=== PATIENT | male | born 1985 | race Caucasian/White ===

== ENCOUNTER → 2016-12-10 | Outpatient (CLI) | payer OTHER ==
[2016-12-10 09:32] LABS: Basophils % (A) 0 %; CH 31.8; CHCM 33.1; Eosinophils # (A) 0.2 k/uL (0-0.7); Eosinophils % (A) 2 %; HCT 45.1 % (39.0-53.0); HDW 2.41; HGB 14.7 gm/dL (13.0-17.5); Luc # (Auto) 0.14; Luc % (Auto) 2; Lymphocytes # (A) 2.3 k/uL (1.0-4.8); Lymphocytes % (A) 30 %; MCH 31.4 pg (25.0-35.0); MCHC 32.6 g/dL (31.0-37.0); MCV 96.4 fL (80.0-100.0); Mean Platelet Volume 6.3; Monocytes # (A) 0.4 k/uL (0-1.0); Monocytes % (A) 5 %; Neutrophils # (A) 4.7 k/uL (1.3-7.7); Neutrophils % (A) 61 %; RBC 4.68 m/uL (4.30-5.90); RDW 13.5 % (11.5-15.5); WBC 7.7 k/uL (3.8-10.6); WBC (Perox) 8.02
[2016-12-10 09:45] LABS: ALT 29 U/L (21-72); AST 15 U/L (17-59); Alkaline Phosphatase 45 U/L (38-126); Bilirubin, Delta 0.2 mg/dL (0.0-0.2); Cholesterol 160 mg/dL (<200); HDL Cholesterol 55 mg/dL (40-60); Non-African American GFR(MDRD) >60 (>60 ml/min/1.73 sqM); Total Bilirubin 0.5 mg/dL (0.2-1.3); Total Protein 6.6 g/dL (6.3-8.2); Triglycerides 108 mg/dL (<150)
== END | disposition home or self-care (01) ==
LOC: LABWHC1 08:36
PROVIDERS: ATTEND Internal Medicine
DX: M08.20 Juvenile rheumatoid arthritis with systemic onset, unspecified site (principal); Z51.81 Encounter for therapeutic drug level monitoring
CPT/HCPCS: 36415; 80061; 80076; 82565; 85025; 86480

== ENCOUNTER → 2017-04-07 | Outpatient (CLI) | payer OTHER ==
[2017-04-07 11:15] LABS: Basophils % (A) 0 %; CH 32.3; CHCM 34.1; Eosinophils # (A) 0.2 k/uL (0-0.7); Eosinophils % (A) 3 %; HCT 48.1 % (39.0-53.0); HDW 2.45; HGB 15.6 gm/dL (13.0-17.5); Luc % (Auto) 1; Lymphocytes # (A) 2.2 k/uL (1.0-4.8); Lymphocytes % (A) 26 %; MCH 30.9 pg (25.0-35.0); MCHC 32.4 g/dL (31.0-37.0); MCV 95.3 fL (80.0-100.0); Mean Platelet Volume 7.1; Monocytes # (A) 0.4 k/uL (0-1.0); Monocytes % (A) 5 %; Neutrophils # (A) 5.6 k/uL (1.3-7.7); Neutrophils % (A) 66 %; RBC 5.05 m/uL (4.30-5.90); RDW 14.3 % (11.5-15.5); WBC 8.4 k/uL (3.8-10.6); WBC (Perox) 8.57
[2017-04-07 11:34] LABS: ALT 28 U/L (21-72); AST 16 U/L (17-59); Alkaline Phosphatase 49 U/L (38-126); Bilirubin, Delta 0.1 mg/dL (0.0-0.2); Non-African American GFR(MDRD) >60 (>60 ml/min/1.73 sqM); Total Bilirubin 0.5 mg/dL (0.2-1.3); Total Protein 6.9 g/dL (6.3-8.2)
== END | disposition home or self-care (01) ==
LOC: LABWHC1 10:26
PROVIDERS: ATTEND Internal Medicine Rheumatology
DX: M08.20 Juvenile rheumatoid arthritis with systemic onset, unspecified site (principal); Z51.81 Encounter for therapeutic drug level monitoring
CPT/HCPCS: 36415; 80076; 82565; 85025

== ENCOUNTER 2017-11-02 20:57 | Emergency (ER) | payer OTHER ==
[2017-11-02] MEDS ORDERED: SODIUM CHLORIDE 0.9% 1,000 ML IV STA (21:32)
[2017-11-02 21:48] VITALS: RESP 14
[2017-11-02 21:58] LABS: Basophils % (A) 0 %; Eosinophils # (A) 0.1 k/uL (0-0.7); Eosinophils % (A) 2 %; HGB 13.9 gm/dL (13.0-17.5); Lymphocytes # (A) 2.4 k/uL (1.0-4.8); Lymphocytes % (A) 31 %; MCH 31.1 pg (25.0-35.0); MCHC 34.8 g/dL (31.0-37.0); MCV 89.5 fL (80.0-100.0); Monocytes # (A) 0.4 k/uL (0-1.0); Monocytes % (A) 5 %; Neutrophils # (A) 4.6 k/uL (1.3-7.7); Neutrophils % (A) 61 %; Platelet Count 238 k/uL (150-450); RBC 4.47 m/uL (4.30-5.90); RDW 12.8 % (11.5-15.5); WBC 7.6 k/uL (3.8-10.6)
[2017-11-02 22:05] LABS: ALT 22 U/L (21-72); AST 19 U/L (17-59); Albumin 4.5 g/dL (3.5-5.0); Alkaline Phosphatase 39 U/L (38-126); Amylase 54 U/L (30-110); Anion Gap 13 mmol/L; Blood Urea Nitrogen 15 mg/dL (9-20); Calcium 9.9 mg/dL (8.4-10.2); Carbon Dioxide 25 mmol/L (22-30); Chloride 106 mmol/L (98-107); Glucose 109 mg/dL (74-99); Lipase 63 U/L (23-300); Potassium 3.8 mmol/L (3.5-5.1); Sodium 144 mmol/L (137-145); Total Bilirubin 0.3 mg/dL (0.2-1.3); Total Protein 6.5 g/dL (6.3-8.2)
--- NOTE | 2017-11-02 22:23 | XR ---
EXAMINATION TYPE: XR KUB DATE OF EXAM: 11/02/2017 COMPARISON: NONE HISTORY: Abdominal pain TECHNIQUE: 2 views FINDINGS: There is no sign of intestinal obstruction or pneumoperitoneum. Fecal pattern is normal. Th ere are no pathologic calcifications over the kidneys. IMPRESSION: Nonacute abdomen.
--- NOTE | 2017-11-02 22:23 | XR ---
EXAMINATION TYPE: XR chest 2V DATE OF EXAM: 11/02/2017 COMPARISON: 07/30/2012 HISTORY: Chest pain TECHNIQUE: Frontal and lateral views of the chest are obtained. FINDINGS: Heart and mediastinum are normal. There is slight blunting of left costophrenic angle. The re is no heart failure. There is minimal linear density in the right lower lobe. IMPRESSION: There is small left pleural effusion or pleural reaction. No heart failure. There is [place] aring of most of the pleural effusions compared to old exam.
[2017-11-02 22:33] LABS: Appearance,Urine Clear (Clear); Bilirubin,Urine Negative (Negative); Blood,Urine Negative (Negative); Color,Urine Yellow; Glucose,Urine (UA) Negative (Negative); Ketones,Urine Negative (Negative); Leukocyte Esterase,Urine Negative (Negative); Nitrite,Urine Negative (Negative); PH, Urine 5.5 (5.0-8.0); Protein,Urine Negative (Negative); Specific Gravity,Urine 1.021 (1.001-1.035)
[2017-11-02] MEDS ORDERED: RX INFO: IV CONTRAST WAS GIVEN 1 EACH MISC MISCELLANE PRN (22:45)
--- NOTE | 2017-11-02 22:58 | ED ---
General Adult HPI - General Chief complaint: Abdominal Pain Stated complaint: back & kidney pain/fluid on lungs Time Seen by Provider: 11/02/17 21:21 Source: patient, RN notes reviewed Mode of arrival: ambulatory Limitations: no limitations - History of Present Illness Initial comments: Patient is a 32-year-old male presenting to the emergency room today with a chief complaint of right-sided flank pain. 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 States he has a known history of an effusion of the left lung. Patient states status post have a CT done but he ran out of insurance did not follow-up. Patient states that today while working began having increased pain. He states he's use to some arthritis but this was increased in the right flank. Patient states that he felt somewhat confused. He was working outside and has been hot today. Patient denies any other complaints or symptoms currently. Patient denies any recent fever, chills, shortness of breath, chest pain, nausea or vomiting, numbness or tingling, dysuria or hematuria, constipation or diarrhea, headaches or visual changes, or any other complaints. - Related Data Home Medications Medication Instructions Recorded Confirmed Folic Acid 2 mg PO DAILY 05/04/17 11/02/17 predniSONE 5 mg PO DAILY 05/04/17 11/02/17 Methotrexate Sodium [Methotrexate] 15 mg PO WE 11/02/17 11/02/17 predniSONE 4 mg PO DAILY 11/02/17 11/02/17 Allergies Allergy/AdvReac Type Severity Reaction Status Date / Time No Known Allergies Allergy Verified 11/02/17 21:56 Review of Systems ROS Statement: Those systems with pertinent positive or pertinent negative responses have been documented in the HPI. ROS Other: All systems not noted in ROS Statement are negative. Past Medical History Past Medical History: Asthma Additional Past Medical History / Comment(s): stills disease History of Any Multi-Drug Resistant Organisms: None Reported Additional Past Surgical History / Comment(s): heart surgery- hole repaired. Past Psychological History: Anxiety, Bipolar, Depression Smoking Status: Former smoker Past Alcohol Use History: Rare Past Drug Use History: Marijuana General Exam - General Exam Comments Initial Comments: General: The patient is awake and alert, in no distress, and does not appear acutely ill. Eye: Pupils are equal, round and reactive to light, extra-ocular movements are intact. No nystagmus. There is normal conjunctiva bilaterally. No signs of icterus. Ears, nose, mouth and throat: There are moist mucous membranes and no oral lesions. Neck: The neck is supple, there is no tenderness or JVD. Cardiovascular: There is a regular rate and rhythm. No murmur, rub or gallop is appreciated. Respiratory: Lungs are clear to auscultation, respirations are non-labored, breath sounds are equal. No wheezes, stridor, rales, or rhonchi. Gastrointestinal: Soft, non-distended, non-tender abdomen without masses or organomegaly noted. There is no rebound or guarding present. No CVA tenderness. Bowel sounds are unremarkable. Musculoskeletal: Normal ROM, no tenderness. Strength 5/5. Sensation intact. Pulses equal bilaterally 2+. Neurological: A&O x 3. CN II-XII intact, There are no obvious motor or sensory deficits. Coordination appears grossly intact. Speech is normal. Skin: Skin is warm and dry and no rashes or lesions are noted. Psychiatric: Cooperative, appropriate mood & affect, normal judgment. Limitations: no limitations Course Vital Signs 11/02/17 11/02/17 11/02/17 21:04 21:43 21:47 Temperature 98.2 F 99 F Pulse Rate 63 80 Respiratory 18 18 14 Rate Blood Pressure 125/71 134/66 O2 Sat by Pulse 100 97 Oximetry 11/02/17 11/02/17 21:59 23:11 Temperature 99.4 F 98.1 F Pulse Rate 84 Respiratory 14 Rate Blood Pressure 127/62 O2 Sat by Pulse 96 Oximetry - Reevaluation(s) Reevaluation #1: 11/02/17 22:58 Patient examined and showing no signs of distress. He admits that his confusion is much better after IV fluids. Feels more like himself still experiencing some right flank pain. Patient stating he was supposed to have CAT scan of his lungs but unable to. Was ordered. CAT scan today. CT currently pending. Medical Decision Making - Medical Decision Making Patient reexamined at this time shows no signs of distress. Patient does admit that he is feeling better here in emergency room. CT chest and pelvis was reviewed shows cyst right kidney no other acute abnormalities appreciated. Small pleural effusion seen on his x-ray which shows a improving compared to comparison. Results were discussed with the patient. Advised close follow-up family doctor over the next 2 days. Advised to return here to the emergency room if any symptoms increase or worsen. Patient states understanding and is in agreement. - Lab Data Result diagrams: 11/02/17 21:30 11/02/17 21:30 Lab Results 11/02/17 11/02/17 11/02/17 Range/Units 21:30 21:30 22:20 WBC 7.6 (3.8-10.6) k/uL RBC 4.47 (4.30-5.90) m/uL Hgb 13.9 (13.0-17.5) gm/dL Hct 40.0 (39.0-53.0) % MCV 89.5 (80.0-100.0) fL MCH 31.1 (25.0-35.0) pg MCHC 34.8 (31.0-37.0) g/dL RDW 12.8 (11.5-15.5) % Plt Count 238 (150-450) k/uL Neutrophils % 61 % Lymphocytes % 31 % Monocytes % 5 % Eosinophils % 2 % Basophils % 0 % Neutrophils # 4.6 (1.3-7.7) k/uL Lymphocytes # 2.4 (1.0-4.8) k/uL Monocytes # 0.4 (0-1.0) k/uL Eosinophils # 0.1 (0-0.7) k/uL Basophils # 0.0 (0-0.2) k/uL Sodium 144 (137-145) mmol/L Potassium 3.8 (3.5-5.1) mmol/L Chloride 106 (98-107) mmol/L Carbon Dioxide 25 (22-30) mmol/L Anion Gap 13 mmol/L BUN 15 (9-20) mg/dL Creatinine 0.87 (0.66-1.25) mg/dL Est GFR (CKD-EPI)AfAm >90 (>60 ml/min/1.73 sqM) Est GFR (CKD-EPI)NonAf >90 (>60 ml/min/1.73 sqM) Glucose 109 H (74-99) mg/dL Calcium 9.9 (8.4-10.2) mg/dL Total Bilirubin 0.3 (0.2-1.3) mg/dL AST 19 (17-59) U/L ALT 22 (21-72) U/L Alkaline Phosphatase 39 (38-126) U/L Total Protein 6.5 (6.3-8.2) g/dL Albumin 4.5 (3.5-5.0) g/dL Amylase 54 (30-110) U/L Lipase 63 (23-300) U/L Urine Color Yellow Urine Appearance Clear (Clear) Urine pH 5.5 (5.0-8.0) Ur Specific [place] 1.021 (1.001-1.035) Urine Protein Negative (Negative) Urine Glucose (UA) Negative (Negative) Urine Ketones Negative (Negative) Urine Blood Negative (Negative) Urine Nitrite Negative (Negative) Urine Bilirubin Negative (Negative) Urine Urobilinogen 2.0 (<2.0) mg/dL Ur Leukocyte Esterase Negative (Negative) Disposition Clinical Impression: Renal cyst, Pleural effusion Disposition: HOME SELF-CARE Condition: Good Instructions: Pleural Effusion (ED) Additional Instructions: Please use medication as discussed. Please follow-up with family doctor in the next 2 days. Please return to emergency room if the symptoms increase or worsen or for any other concerns. Is patient prescribed a controlled substance at d/c from ED?: No Referrals: Montse Hernandez MD [Primary Care Provider] - 1-2 days Time of Disposition: 23:52
--- NOTE | 2017-11-02 23:24 | CT ---
EXAMINATION TYPE: CT ChestAbdPelvis w con DATE OF EXAM: 11/02/2017 COMPARISON: NONE HISTORY: left flank, chest and back pain CT DLP: 1238.00 mGycm Automated exposure control for dose reduction was used. CONTRAST: CT scan of the chest, abdomen and pelvis is performed without Oral Contrast and with IV Contrast, pat ient injected with 100 mL of Isovue 300. FINDINGS: The lungs are clear of infiltrate. There is no evidence of a pulmonary mass. Heart size is normal. Th ere is no pericardial effusion. There is no mediastinal adenopathy. There are no hilar masses. Liver spleen pancreas appear normal. Bile ducts are not dilated. Gallbladder is contracted. There is no adrenal mass. There is a 2.5 cm cyst on the lateral right kidney. Kidneys show satisfacto ry contrast opacification. There is no hydronephrosis. Ureters are not dilated. There is no retroperi toneal adenopathy. There is no ascites. Bladder distends smoothly. There is no sign of a pelvic mass. I see no intestinal wall thickening. There are no dilated loops. Appendix appears normal. Thoracic a nd lumbar vertebra show normal spacing and alignment. There is no evidence of compression fracture. I see no bony destructive process. IMPRESSION: Negative CT scan of the chest abdomen and pelvis. Right renal cortical cyst noted. Contra cted gallbladder. I do not see a cause for the patient's symptoms.
[2017-11-03 00:03] VITALS: BP 118/68; PULSE 66; TEMP 98.3
== END 2017-11-03 00:04 | disposition home or self-care (01) ==
LOC: EC 20:57
DX: J90 Pleural effusion, not elsewhere classified (principal); N28.1 Cyst of kidney, acquired; M08.20 Juvenile rheumatoid arthritis with systemic onset, unspecified site; J45.909 Unspecified asthma, uncomplicated; Z87.891 Personal history of nicotine dependence; Z79.52 Long term (current) use of systemic steroids; Z79.899 Other long term (current) drug therapy
CPT/HCPCS: 36415; 80053; 82150; 83690; 85025; 81003; 71046; 74018; 71260; 74177; 99284; 96360; 96361; Q9967

== ENCOUNTER 2017-11-10 09:14 | Emergency (ER) | payer OTHER ==
[2017-11-10 09:31] VITALS: RESP 18
[2017-11-10 10:45] LABS: Amphetamine Screen,Urine Not Detected (NotDetected); Barbiturate Screen,Urine Not Detected (NotDetected); Benzodiazepines Screen,Urine Not Detected (NotDetected); Cocaine Screen,Urine Not Detected (NotDetected); Methadone Screen, Urine Not Detected (NotDetected); Opiate Screen,Urine Not Detected (NotDetected); Oxycodone Screen, Urine Not Detected (NotDetected); Phencyclidine Screen,Urine Not Detected (NotDetected); Tricyclic Antidepressant,Urine Not Detected (NotDetected); Urn Cannabinoid Scrn Detected (NotDetected)
--- NOTE | 2017-11-10 12:25 | ED ---
General Adult HPI - General Chief complaint: Psychiatric Symptoms Stated complaint: Trouble Thinking/Confused Time Seen by Provider: 11/10/17 09:50 Source: patient, RN notes reviewed Mode of arrival: ambulatory Limitations: no limitations - History of Present Illness Initial comments: Patient's 32-year-old male significant past medical history for stills disease, presenting to the emergency room today with a chief complaint of having a difficult time making decisions and concentrating. Patient states that he's noticed this problem over the last weeks. Patient states he has chronic back pain which she was seen here in the emergency room approximately a week ago. Patient admits that he is on steroids and methotrexate for his history of still' s disease. He states he's never seen a counselor therapist. He does admit that he was having some thoughts of hurting himself recently but no falls suicide today. Denies any homicidal thoughts or plans. Patient denies any other complaints. - Related Data Home Medications Medication Instructions Recorded Confirmed Folic Acid 2 mg PO DAILY 05/04/17 11/10/17 predniSONE 5 mg PO DAILY 05/04/17 11/10/17 Methotrexate Sodium [Methotrexate] 15 mg PO WE 11/02/17 11/10/17 predniSONE 2 mg PO DAILY 11/02/17 11/10/17 Allergies Allergy/AdvReac Type Severity Reaction Status Date / Time No Known Allergies Allergy Verified 11/10/17 09:49 Review of Systems ROS Statement: Those systems with pertinent positive or pertinent negative responses have been documented in the HPI. ROS Other: All systems not noted in ROS Statement are negative. Past Medical History Past Medical History: Asthma Additional Past Medical History / Comment(s): stills disease History of Any Multi-Drug Resistant Organisms: None Reported Additional Past Surgical History / Comment(s): heart surgery- hole repaired. Past Psychological History: Anxiety, Bipolar, Depression Smoking Status: Former smoker Past Alcohol Use History: Rare Past Drug Use History: Marijuana General Exam - General Exam Comments Initial Comments: General: The patient is awake and alert, in no distress, and does not appear acutely ill. Eye: Pupils are equal, round and reactive to light, extra-ocular movements are intact. No nystagmus. There is normal conjunctiva bilaterally. No signs of icterus. Ears, nose, mouth and throat: There are moist mucous membranes and no oral lesions. Neck: The neck is supple, there is no tenderness or JVD. Cardiovascular: There is a regular rate and rhythm. No murmur, rub or gallop is appreciated. Respiratory: Lungs are clear to auscultation, respirations are non-labored, breath sounds are equal. No wheezes, stridor, rales, or rhonchi. Gastrointestinal: Soft, non-distended, non-tender abdomen without masses or organomegaly noted. There is no rebound or guarding present. No CVA tenderness. Musculoskeletal: Normal ROM, no tenderness. Strength 5/5. Sensation intact. Pulses equal bilaterally 2+. Neurological: A&O x 3. CN II-XII intact, There are no obvious motor or sensory deficits. Coordination appears grossly intact. Speech is normal. Skin: Skin is warm and dry and no rashes or lesions are noted. Limitations: no limitations Course Vital Signs 11/10/17 09:29 Temperature 97.9 F Pulse Rate 85 Respiratory 18 Rate Blood Pressure 133/83 O2 Sat by Pulse 98 Oximetry Medical Decision Making - Medical Decision Making Patient reexamined here in the emergency room show no signs of distress is been seen by mental health. Patient's at this time has been cleared for follow-up outpatient. Patient's recent visit was also reviewed with recent lab work. Patient is advised follow-up with family physician over the next 2 days. Advised return here to emergency room symptoms increase or worsen. - Lab Data Lab Results 11/10/17 Range/Units 09:40 Urine Opiates Screen Not Detected (NotDetected) Ur Oxycodone Screen Not Detected (NotDetected) Urine Methadone Screen Not Detected (NotDetected) Ur Propoxyphene Screen Not Detected (NotDetected) Ur Barbiturates Screen Not Detected (NotDetected) U Tricyclic Antidepress Not Detected (NotDetected) Ur Phencyclidine Scrn Not Detected (NotDetected) Ur Amphetamines Screen Not Detected (NotDetected) U Methamphetamines Scrn Not Detected (NotDetected) U Benzodiazepines Scrn Not Detected (NotDetected) Urine Cocaine Screen Not Detected (NotDetected) U Marijuana (THC) Screen Detected H (NotDetected) Disposition Clinical Impression: Still's disease, Depression Disposition: HOME SELF-CARE Condition: Good Instructions: Bone Scintigraphy (ED), Depression (ED) Additional Instructions: Please use medication as discussed. Please follow-up with family doctor in the next 2 days of symptoms have not improved. Please return to emergency room if the symptoms increase or worsen or for any other concerns. Is patient prescribed a controlled substance at d/c from ED?: No Referrals: Montse Hernandez MD [Primary Care Provider] - 1-2 days Time of Disposition: 12:57
[2017-11-10 13:14] VITALS: BP 123/56; PULSE 68; TEMP 98.3
== END 2017-11-10 13:10 | disposition home or self-care (01) ==
LOC: EC 09:14
DX: M08.20 Juvenile rheumatoid arthritis with systemic onset, unspecified site (principal); F32.9 Major depressive disorder, single episode, unspecified; J45.909 Unspecified asthma, uncomplicated; Z79.52 Long term (current) use of systemic steroids; Z79.899 Other long term (current) drug therapy; Z87.891 Personal history of nicotine dependence
CPT/HCPCS: 80306; 99284

== ENCOUNTER 2018-01-25 08:50 | Inpatient (IN) | payer MEDICAID, OTHER ==
--- NOTE | 2018-01-25 09:12 | ED ---
Psych HPI - General Chief Complaint: Psychiatric Symptoms Stated Complaint: suicidal Time Seen by Provider: 01/25/18 08:57 Source: patient, RN notes reviewed Mode of arrival: ambulatory Limitations: no limitations - History of Present Illness Initial Comments: 32-year-old male presents emergency Department chief complaint of depression, suicidal ideation. Patient states he has ongoing depression and states that he feels suicidal and states that he cannot trust himself. Patient states that he did use marijuana recently and states he drank alcohol over the weekend. Patient states that he was admitted at a different hospital a few months back. He states his place and Seroquel but discontinued it because it made him too fatigued. Patient denies any physical complaints. Patient denies any homicidal ideation - Related Data Home Medications Medication Instructions Recorded Confirmed Folic Acid 2 mg PO DAILY 05/04/17 01/25/18 predniSONE 5 mg PO DAILY 05/04/17 01/25/18 Methotrexate Sodium [Methotrexate] 15 mg PO WE 11/02/17 01/25/18 predniSONE 3 mg PO DAILY 11/02/17 01/25/18 Allergies Allergy/AdvReac Type Severity Reaction Status Date / Time No Known Allergies Allergy Verified 01/25/18 08:55 Review of Systems ROS Statement: Those systems with pertinent positive or pertinent negative responses have been documented in the HPI. ROS Other: All systems not noted in ROS Statement are negative. Past Medical History Past Medical History: Asthma Additional Past Medical History / Comment(s): stills disease History of Any Multi-Drug Resistant Organisms: None Reported Additional Past Surgical History / Comment(s): heart surgery- hole repaired. Past Psychological History: Anxiety, Bipolar, Depression Smoking Status: Former smoker Past Alcohol Use History: Rare Past Drug Use History: Marijuana General Exam Limitations: no limitations General appearance: alert, in no apparent distress Head exam: Present: atraumatic, normocephalic, normal inspection Eye exam: Present: normal appearance, PERRL, EOMI. Absent: scleral icterus, conjunctival injection, periorbital swelling ENT exam: Present: normal exam, normal oropharynx, mucous membranes moist Neck exam: Present: normal inspection, full ROM. Absent: tenderness, meningismus, lymphadenopathy Respiratory exam: Present: normal lung sounds bilaterally. Absent: respiratory distress, wheezes, rales, rhonchi, stridor Cardiovascular Exam: Present: regular rate, normal rhythm, normal heart sounds. Absent: systolic murmur, diastolic murmur, rubs, gallop, clicks GI/Abdominal exam: Present: soft, normal bowel sounds. Absent: distended, tenderness, guarding, rebound, rigid Neurological exam: Present: alert, oriented X3, CN II-XII intact Psychiatric exam: Present: depressed, flat affect Skin exam: Present: warm, dry, intact, normal color. Absent: rash Course Vital Signs 01/25/18 08:54 Temperature 98.5 F Pulse Rate 65 Respiratory 18 Rate Blood Pressure 132/83 O2 Sat by Pulse 96 Oximetry Medical Decision Making - Medical Decision Making 32-year-old male presented for psychiatric evaluation. Patient is depressed suicidal. Patient was medically cleared by me. Patient will be admitted here for psychiatric services. - Lab Data Lab Results 01/25/18 01/25/18 Range/Units 09:32 09:32 Urine Color Light Yellow Urine Appearance Clear (Clear) Urine pH 5.5 (5.0-8.0) Ur Specific [place] 1.008 (1.001-1.035) Urine Protein Negative (Negative) Urine Glucose (UA) Negative (Negative) Urine Ketones Negative (Negative) Urine Blood Negative (Negative) Urine Nitrite Negative (Negative) Urine Bilirubin Negative (Negative) Urine Urobilinogen <2.0 (<2.0) mg/dL Ur Leukocyte Esterase Negative (Negative) Urine Opiates Screen Not Detected (NotDetected) Ur Oxycodone Screen Not Detected (NotDetected) Urine Methadone Screen Not Detected (NotDetected) Ur Propoxyphene Screen Not Detected (NotDetected) Ur Barbiturates Screen Not Detected (NotDetected) U Tricyclic Antidepress Not Detected (NotDetected) Ur Phencyclidine Scrn Not Detected (NotDetected) Ur Amphetamines Screen Not Detected (NotDetected) U Methamphetamines Scrn Not Detected (NotDetected) U Benzodiazepines Scrn Not Detected (NotDetected) Urine Cocaine Screen Not Detected (NotDetected) U Marijuana (THC) Screen Detected H (NotDetected) Disposition Clinical Impression: Depression, Suicidal ideation Disposition: ADMITTED IP TO THIS [facility] Condition: Stable Referrals: Montse Hernandez MD [Primary Care Provider] - 1-2 days
[2018-01-25 10:21] LABS: Amphetamine Screen,Urine Not Detected (NotDetected); Barbiturate Screen,Urine Not Detected (NotDetected); Benzodiazepines Screen,Urine Not Detected (NotDetected); Cocaine Screen,Urine Not Detected (NotDetected); Methadone Screen, Urine Not Detected (NotDetected); Opiate Screen,Urine Not Detected (NotDetected); Oxycodone Screen, Urine Not Detected (NotDetected); Phencyclidine Screen,Urine Not Detected (NotDetected); Tricyclic Antidepressant,Urine Not Detected (NotDetected); Urn Cannabinoid Scrn Detected (NotDetected)
[2018-01-25 11:25] LABS: Appearance,Urine Clear (Clear); Bilirubin,Urine Negative (Negative); Blood,Urine Negative (Negative); Color,Urine Light Yellow; Glucose,Urine (UA) Negative (Negative); Ketones,Urine Negative (Negative); Leukocyte Esterase,Urine Negative (Negative); Nitrite,Urine Negative (Negative); PH, Urine 5.5 (5.0-8.0); Protein,Urine Negative (Negative); Specific Gravity,Urine 1.008 (1.001-1.035); Urobilinogen,Urine <2.0 mg/dL (<2.0)
[2018-01-25 11:47] LABS: Basophils % (A) 0 %; Eosinophils # (A) 0.1 k/uL (0-0.7); Eosinophils % (A) 1 %; HCT 45.9 % (39.0-53.0); HGB 15.7 gm/dL (13.0-17.5); Lymphocytes # (A) 1.1 k/uL (1.0-4.8); Lymphocytes % (A) 14 %; MCH 31.8 pg (25.0-35.0); MCHC 34.2 g/dL (31.0-37.0); MCV 92.9 fL (80.0-100.0); Mean Platelet Volume 6.4; Monocytes # (A) 0.3 k/uL (0-1.0); Monocytes % (A) 4 %; Neutrophils # (A) 6.2 k/uL (1.3-7.7); Neutrophils % (A) 79 %; Platelet Count 243 k/uL (150-450); RBC 4.94 m/uL (4.30-5.90); RDW 12.8 % (11.5-15.5); WBC 7.7 k/uL (3.8-10.6)
[2018-01-25 12:00] LABS: ALT 29 U/L (21-72); AST 19 U/L (17-59); Albumin 4.5 g/dL (3.5-5.0); Alkaline Phosphatase 38 U/L (38-126); Anion Gap 7 mmol/L; Blood Urea Nitrogen 17 mg/dL (9-20); Calcium 9.7 mg/dL (8.4-10.2); Carbon Dioxide 24 mmol/L (22-30); Chloride 109 mmol/L (98-107); Glucose 102 mg/dL (74-99); Potassium 4.7 mmol/L (3.5-5.1); Sodium 140 mmol/L (137-145); Total Bilirubin 0.3 mg/dL (0.2-1.3); Total Protein 6.7 g/dL (6.3-8.2)
[2018-01-25] MEDS ORDERED: ACETAMINOPHEN TAB 325 MG TAB PO PRN (15:45)
[2018-01-25] MEDS ORDERED: MAGNESIUM HYDROXIDE 2,400 MG/10 ML CUP PO PRN (15:45)
[2018-01-25] MEDS ORDERED: MAG HYDROX/AL HYDROX/SIMETH 30 ML CUP PO PRN (15:45)
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
--- NOTE | 2018-01-25 18:47 | CONS ---
CONSULTATION DATE OF SERVICE: 01/25/2018. REASON FOR CONSULTATION: Advice regarding rheumatoid arthritis and the medications requested by Psychiatry. HISTORY OF PRESENT ILLNESS: This 32-year-old gentleman with past history of asthma, Still disease, anxiety, bipolar depression, rheumatoid arthritis, history of THC, being followed by Dr. Montse Hernandez in the outpatient setting was admitted for psychiatric evaluation. There is no history of any fever, rigors. No history of headache, loss of consciousness or seizures at this time. PAST MEDICAL HISTORY: History of Still disease, asthma, anxiety, bipolar, depression, history of nicotine dependence. MEDICATIONS: 1. Prednisone 3 mg and 5 mg daily. 2. Methotrexate 50 mg Wednesday. 3. Folic acid 2 mg p.o. daily. ALLERGIES: None. FAMILY HISTORY: No history of heart disease or strokes in the family. SOCIAL HISTORY: History of smoking and THC. REVIEW OF SYSTEMS: ENT: No diminished hearing, diminished vision. CARDIOVASCULAR: No angina, palpitations. RESPIRATORY: No cough or hemoptysis. GI: No nausea or vomiting. : No dysuria. NERVOUS: No numbness or weakness. ALLERGY/IMMUNOLOGY: No asthma or hay fever. MUSCULOSKELETAL: As mentioned earlier. HEMATOLOGY/ONCOLOGY: No history of anemia. RHEUMATOLOGY: As mentioned earlier. PSYCHIATRY: As mentioned earlier. PHYSICAL EXAMINATION: Alert, oriented x3. The pulse is 74, blood pressure 130/60,[id number], temperature 97.6, pulse ox 94% on room air. HEENT: Conjunctivae normal. Oral mucosa moist. NECK: No jugular venous distention. No carotid bruits. No lymph node enlargement. CARDIOVASCULAR: S1, S2 muffled. RESPIRATORY: Breath sounds diminished in the bases. No rhonchi. No crackles. ABDOMEN: Soft, nontender. No mass palpable. LEGS: No edema. No swelling. NERVOUS SYSTEM: Higher functions as mentioned earlier. Moves all 4 limbs. No focal motor or sensory deficits. LYMPHATIC: No lymphadenopathy in neck or axillae. SKIN: No ulcer, rash or bleeding. LABS: CBC within normal limits. Sodium 140, potassium 4.7. THC positive. ASSESSMENT: 1. Depression and suicidal ideations. 2. History of Still disease and rheumatoid arthritis. 3. History of asthma. 4. Anxiety and bipolar depression. 5. History of nicotine dependence. 6. History of THC. RECOMMENDATIONS AND DISCUSSION: In this 32-year-old gentleman who presented with multiple medical issues, at this time I recommend to continue the current medical management and symptomatic treatment. Will resume the home medications. Otherwise, I would recommend close followup. The basic labs are normal. I recommend close follow up with Dr. Montse Hernandez in the outpatient setting. Will follow the patient closely. Thank you, Dr. Delgado, for the asking me to participate in the care of this patient. MMODL / IJN: [id number] /
[2018-01-25] MEDS: ARIPiprazole 5 MG TAB PO SCH (21:05)
[2018-01-26] MEDS ORDERED: METHOTREXATE SODIUM 2.5 MG TAB PO SCH (09:00)
[2018-01-26] MEDS ORDERED: predniSONE 5 MG TAB PO SCH (09:00)
[2018-01-26] MEDS: predniSONE 5 MG TAB PO SCH (09:00)
[2018-01-26] MEDS ORDERED: predniSONE 1 MG TAB PO SCH (09:00)
--- NOTE | 2018-01-26 10:16 | P.PN ---
Progress Note - Text Progress Note Date: 01/26/18 Interval History: Patient is a 32-year-old male who was seen today and he reports that he didn't sleep well last night due to his roommates snoring. Patient states that the auditory hallucinations have decreased but he continues to feel that people are talking about him and is suspicious. He reports continuing to feel depressed but states no further suicidal thoughts. Patient states that he continues to have crying spells. Patient states that he feels he can support himself on the full-time job at the [employer] and is able to make his house payments. He states no side effects from the Abilify. Mental Status: Appearance/Attitude: Patient is dressed in a hospital gown, makes good eye contact and is cooperative. Behavior: Patient does not exhibit any psychomotor agitation or retardation. Speech/Language: Patient's speech is spontaneous of normal volume and rhythm and he is coherent. Thought Process: Patient is goal-directed there is no evidence of loose associations or flight of ideas. Thought Content: Patient states that he is not hearing voices at this time denies visual hallucinations but is still suspicious and paranoid that people are talking about him. He reports no ideas of reference at this time. Patient states that he continues to feel stressed and overwhelmed. Patient states his sleep was poor last night and his appetite is fair. He reported no side effects from the Abilify. Suicidal/Homicidal Ideation: Patient denies any current suicidal or homicidal ideation Sensorium/Cognition: Patient is alert and oriented to person, place, and time and his recent and remote memory are grossly intact Mood/Affect: Patient's mood is depressed and his affect is blunted Insight/Judgment: Patient's insight and judgment are intact Assessment: Patient reports that he is no longer hearing voices, continues to remain paranoid and suspicious that people are talking about him did not verbalize any ideas of reference. His mood remains depressed but he states he is no longer feeling suicidal. Patient and I again reviewed his medications for his arthritis the patient had decreased his methotrexate to 7-1/2 mg to save money as he thought he was losing his insurance at the end of the month his dose is supposed to be 15 mg on a weekly basis. Patient had been on a slow taper of prednisone and is supposed to be taking 5 mg a day for one month and then decrease it by 1 mg daily each month. Will place the patient back on prednisone 5 mg daily. Patient has been attending groups and activities. Plan: Patient continue on Abilify 5 mg at bedtime to target his mood and psychotic symptoms. Patient's prednisone was decreased to 5 mg daily as this is what patient had been taking as an outpatient. Patient is on 15 mg of methotrexate on a weekly basis. Patient continues to require hospitalization to further stabilize his mood and target his psychotic symptoms.
[2018-01-26] MEDS: FOLIC ACID 1 MG TAB PO SCH (12:34)
[2018-01-26 16:44] LABS: Appearance,Urine Clear (Clear); Bilirubin,Urine Negative (Negative); Blood,Urine Negative (Negative); Color,Urine Light Yellow; Glucose,Urine (UA) Negative (Negative); Ketones,Urine Negative (Negative); Leukocyte Esterase,Urine Negative (Negative); Nitrite,Urine Negative (Negative); Protein,Urine Negative (Negative); Specific Gravity,Urine 1.012 (1.001-1.035); Urobilinogen,Urine <2.0 mg/dL (<2.0)
[2018-01-26] MEDS: MELATONIN 3 MG TABLET PO SCH (20:11)
[2018-01-26] MEDS: ARIPiprazole 5 MG TAB PO SCH (20:11)
[2018-01-27 07:03] VITALS: RESP 16
[2018-01-27] MEDS: predniSONE 5 MG TAB PO SCH (08:46)
[2018-01-27] MEDS: FOLIC ACID 1 MG TAB PO SCH (12:00)
--- NOTE | 2018-01-27 12:08 | P.PN ---
Progress Note - Text Progress Note Date: 01/27/18 Interval History: Patient is a 32-year-old male who was seen today and he reports that "the fog is lifting". He states that he slept well last night and reports that his thinking is much clearer. He denies any current auditory hallucinations and states that he is much less suspicious and paranoid. Patient states that he's feeling less depressed and better able to cope, feeling that he will be able to cope with the change in employment, his financial concerns. Patient states that he has no current suicidal ideation and reported no side effects from the medication. Mental Status: Appearance/Attitude: Patient is appropriately dressed and makes good eye contact and was cooperative. Behavior: Patient does not exhibit any psychomotor agitation or retardation. Speech/Language: Patient's speech is spontaneous of normal volume and rhythm and he is coherent. Thought Process: Patient is goal-directed there is no evidence of loose associations or flight of ideas. Thought Content: Patient denies any auditory or visual hallucinations and states he is no longer feeling paranoid or suspicious and no delusions or ideas of reference were elicited. Patient states that the fog has lifted and his thinking is much clearer. He states that he sleeping well and feels better able to cope with his stressors. He states his appetite has improved. Suicidal/Homicidal Ideation: Patient denied any current suicidal or homicidal ideation Sensorium/Cognition: Patient is alert and oriented to person, place, and time and his recent and remote memory are grossly intact. Mood/Affect: Patient's mood is less depressed and his affect is appropriate Insight/Judgment: Patient's insight and judgment are intact Assessment: Patient has been attending groups and activities, states that the fog is lifting and his thinking has improved. He is no longer reporting auditory hallucinations or ideas of reference or feeling paranoid and suspicious. States he's feeling less depressed and no longer having suicidal thoughts. Patient reports no side effects from the Abilify and feels that it is been helpful. He reports he slept well last night and feels rested this morning. Patient states that he had already set up appointments at [facility] on January 31 as well as on February 05 with a prescriber. Plan: Patient continue on Abilify 5 mg at bedtime and melatonin 3 mg at bedtime and he and I discussed discharge tomorrow and he was comfortable with that as he feels that the medication has been beneficial and he is improving. Social work will confirm the appointment at [facility] prior to his discharge.
[2018-01-27] MEDS: MELATONIN 3 MG TABLET PO SCH (20:45)
[2018-01-27] MEDS: ARIPiprazole 5 MG TAB PO SCH (20:45)
[2018-01-28 06:58] VITALS: BP 125/72; PULSE 116; TEMP 98
[2018-01-28] MEDS: predniSONE 5 MG TAB PO SCH (08:49)
[2018-01-28] MEDS: FOLIC ACID 1 MG TAB PO SCH (08:50)
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
== END 2018-01-28 10:53 | disposition home or self-care (01) | DRG 885 ==
LOC: EC 08:50 → 3MHU 12:56
PROVIDERS: ADMIT Psychiatry & Neurology Psychiatry; ATTEND Psychiatry & Neurology Psychiatry
DX: F25.0 Schizoaffective disorder, bipolar type (principal); R45.851 Suicidal ideations; F32.9 Major depressive disorder, single episode, unspecified; F12.90 Cannabis use, unspecified, uncomplicated; M08.20 Juvenile rheumatoid arthritis with systemic onset, unspecified site; F41.9 Anxiety disorder, unspecified; J45.909 Unspecified asthma, uncomplicated; Z91.5 Personal history of self-harm; Z79.52 Long term (current) use of systemic steroids; Z79.899 Other long term (current) drug therapy; Z87.891 Personal history of nicotine dependence
CPT/HCPCS: 36415; 80053; 80061; 80306; 81003; 82075; 83036; 84443; 85025; 99285

== ENCOUNTER 2018-08-30 17:13 | Emergency (ER) | payer OTHER ==
[2018-08-30 17:33] VITALS: BP 107/71; PULSE 81; RESP 18; TEMP 98.7
[2018-08-30] MEDS ORDERED: LIDOCAINE 1% INJ 10MG/ML (20 ML MDV) SQ ONE (18:13)
--- NOTE | 2018-08-30 18:32 | ED ---
Wound/Laceration HPI - General Chief Complaint: Wound/Laceration Stated Complaint: lt hand injury Time Seen by Provider: 08/30/18 17:58 Source: patient, RN notes reviewed Mode of arrival: ambulatory Limitations: no limitations - History of Present Illness Initial Comments: 33-year-old male presents emergency Department chief complaint of left hand laceration. Patient states he was scraping a gage and states that he slipped cutting his hand. Patient states he has full range of motion no paresthesias. Last tetanus was 2 years ago. - Related Data Home Medications Medication Instructions Recorded Confirmed Folic Acid 2 mg PO DAILY 05/04/17 01/25/18 predniSONE 5 mg PO DAILY 05/04/17 01/25/18 Methotrexate Sodium [Methotrexate] 15 mg PO WE 11/02/17 01/25/18 Previous Rx's Medication Instructions Recorded ARIPiprazole [Abilify] 5 mg PO HS #14 tab 01/28/18 Melatonin 3 mg PO HS #28 tablet 01/28/18 Allergies Allergy/AdvReac Type Severity Reaction Status Date / Time No Known Allergies Allergy Verified 08/30/18 17:32 Review of Systems ROS Statement: Those systems with pertinent positive or pertinent negative responses have been documented in the HPI. ROS Other: All systems not noted in ROS Statement are negative. 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 stress test 2016-neg. History of Any Multi-Drug Resistant Organisms: None Reported Past Surgical History: Hernia Repair Additional Past Surgical History / Comment(s): age 18 had thoracentesis, andheart surgery- hole repaired. rosemarie inguinal hernia repair Past Anesthesia/Blood Transfusion Reactions: No Reported Reaction Additional Past Anesthesia/Blood Transfusion Reaction / Comment(s): clausterphobia Past Psychological History: Anxiety, Bipolar, Depression Smoking Status: Current every day smoker - Past Family History Father Family Medical History: No Reported History Mother Family Medical History: No Reported History General Exam Limitations: no limitations General appearance: alert, in no apparent distress Head exam: Present: atraumatic, normocephalic, normal inspection Respiratory exam: Present: normal lung sounds bilaterally. Absent: respiratory distress, wheezes, rales, rhonchi, stridor Cardiovascular Exam: Present: regular rate, normal rhythm, normal heart sounds. Absent: systolic murmur, diastolic murmur, rubs, gallop, clicks Extremities exam: Present: other (Left hand there is a 2 cm laceration in the thenar eminence region there is no tendon involvement patient has full strength and full range of motion neurovascular intact) Skin exam: Present: warm, dry, intact, normal color. Absent: rash Course Vital Signs 08/30/18 17:30 Temperature 98.7 F Pulse Rate 81 Respiratory 18 Rate Blood Pressure 107/71 O2 Sat by Pulse 98 Oximetry Procedures - Laceration Laceration #1 Consent Obtained: verbal consent Indication: laceration Site: hand Size (cm): 2 Description: linear Anesthetic Used: lidocaine 1%, without epi Anesthesia Technique: local infiltration Amount (mls): 3 Pre-repair: wound explored, irrigated extensively, deep structures intact Type of Sutures: nylon Size of Sutures: 4-0 Number of Sutures: 3 Technique: simple, interrupted Patient Tolerated Procedure: well, no complications Medical Decision Making - Medical Decision Making 33-year-old male present emergency from for left hand laceration. Patient's laceration was using Ethilon sutures. Patient tolerated well wound care was instructed. I did inform that there is no obvious tendon laceration though he is an area of multiple tendons that he should follow-up with orthopedics in PCP patient verbalizes understanding. Return parameters were discussed. Disposition Clinical Impression: Laceration of left hand Disposition: HOME SELF-CARE Condition: Stable Instructions (If sedation given, give patient instructions): Care For Your Stitches (ED), Laceration (ED) Additional Instructions: Have sutures removed in 10 days Please return to the Emergency Department if symptoms worsen or any other concerns. Is patient prescribed a controlled substance at d/c from ED?: No Referrals: Montse Hernandez MD [Primary Care Provider] - 1-2 days Almas Lopez MD [STAFF PHYSICIAN] - 1-2 days Time of Disposition: 18:31
== END 2018-08-30 18:39 | disposition home or self-care (01) ==
LOC: EC 17:13
DX: S61.412A Laceration without foreign body of left hand, initial encounter (principal); J44.9 Chronic obstructive pulmonary disease, unspecified; M08.20 Juvenile rheumatoid arthritis with systemic onset, unspecified site; F17.200 Nicotine dependence, unspecified, uncomplicated; Z79.52 Long term (current) use of systemic steroids; Z79.899 Other long term (current) drug therapy; W26.0XXA Contact with knife, initial encounter; Y93.G1 Activity, food preparation and clean up; Y92.009 Unspecified place in unspecified non-institutional (private) residence as the place of occurrence of the external cause
CPT/HCPCS: 99282; 12001; J2001

== ENCOUNTER → 2019-04-20 | Outpatient (CLI) | payer OTHER ==
--- NOTE | 2019-04-20 08:49 | US ---
EXAMINATION TYPE: US abdomen complete DATE OF EXAM: 04/20/2019 COMPARISON: None CLINICAL HISTORY: R10.11 Abd pain. RUQ pain. No surgeries. NPO. EXAM MEASUREMENTS: Liver Length: 14.8 cm Gallbladder Wall: 0.2 cm CBD: 0.3 cm Spleen: 10.8 cm Right Kidney: 11.0 x 5.0 x 4.8 cm Left Kidney: 11.0 x 5.7 x 5.4 cm Pancreas: Tail obscured by overlying bowel gas Liver: wnl Gallbladder: wnl Evidence for sonographic Lopez's sign: neg CBD: wnl Spleen: wnl Right Kidney: Lateral mid cystic appearing lesion in renal cortex = 3.6 x 2.8 x 2.1 Left Kidney: wnl Upper IVC: wnl Abd Aorta: no AAA visualized The liver is homogenous. The intrahepatic portion of the IVC and proximal abdominal aorta are within normal limits. There is no evidence of cholelithiasis. Common bile duct is unremarkable. The visu alized portions of the pancreas are homogenous. The spleen is unremarkable. Kidneys are symmetric a nd free of hydronephrosis. No suspicious renal lesions are seen. IMPRESSION: 1. No sonographic evidence of cholelithiasis nor acute cholecystitis. 2. No hydronephrosis of either kidney however there is a benign-appearing 3.6 cm right renal cyst inc identally noted.
== END | disposition home or self-care (01) ==
LOC: RADUSWWP 07:52
PROVIDERS: ATTEND Family Medicine
DX: R10.11 Right upper quadrant pain (principal)
CPT/HCPCS: 76700